=== PATIENT | female | born 1980 ===

== ENCOUNTER 2020-06-04 19:18 | Emergency (ER) | payer SELFPAY ==
[~2020-06-04] VITALS: Ht 165.1 cm; Wt 136.4 kg
[~2020-06-04 19:18] MED LIST: ALBUTEROL SULF8.5 GM INH; LEVAQUIN750 MG PO; PAXIL20 MG PO; TOPROL XL25 MG PO
[2020-06-04 19:35] VITALS: Ht 165.1 cm; Wt 136.4 kg
[2020-06-04 20:49] LABS: BILIRUBIN NEGATIVE (NEGATIVE); KETONE NEGATIVE (NEGATIVE); NITRITE NEGATIVE (NEGATIVE); UROBILINOGEN NORMAL mg/dL (< 2)
[2020-06-04 20:50] LABS: BACTERIA MANY HPF (NONE SEEN)
[2020-06-04 20:56] LABS: HCG URINE NEGATIVE (NEGATIVE)
[2020-06-04 21:57] LABS: CALC OSMOLALITY 272 mosm/kg (275-300); CALCIUM 9.1 mg/dL (8.5-10.1); CHLORIDE - SERUM 103 mmol/L (98-107); CREATININE - SERUM 0.8 mg/dL (0.6-1.3); GLUCOSE 97 mg/dL (74-106); POTASSIUM - SERUM 3.6 mmol/L (3.5-5.1); SODIUM 137 mmol/L (136-145); UREA NITROGEN 10 mg/dL (7-18); eGFR NON AFRICAN AMERICAN 85 mL/min (90-120)
[2020-06-04 22:00] LABS: BASOPHILS 0.3 % (0-2); EOSINOPHILS 4.6 % (0-7); HEMOGLOBIN 11.7 g/dL (12-16); IMMATURE GRANULOCYTES 0.4 % (0-5); LYMPHOCYTES 17.3 % (15-50); MCH 26.7 pg (26.0-34.0); MCHC 33.4 g/dL (31.0-37.0); MCV 79.9 fL (80.0-100.0); MEAN PLATELET VOLUME 9.6 fL (7.4-10.4); MONOCYTES 4.2 % (2-11); NEUTROPHILS 73.2 % (40-80); PLATELET COUNT 300 10x3/uL (130-400); RBC 4.38 10x6/uL (4.00-5.40); RDW 14.4 % (11.5-14.5); WBC 12.6 10x3/uL (4.8-10.8)
[2020-06-04 22:08] LABS: ALBUMIN 3.3 g/dL (3.4-5.0); ALKALINE PHOSPHATASE 66 U/L (30-120); ALT (SGPT) 35 U/L (10-68); BILIRUBIN - TOTAL 0.21 mg/dL (0.2-1.3); C-REACTIVE PROTEIN 0.9 mg/dL (0.0-0.9); LIPASE 206 U/L (73-393); PROTEIN - SERUM 7.3 g/dL (6.4-8.2)
[2020-06-04 22:14] LABS: TROPONIN-I < 0.017 ng/mL (0.000-0.060)
[2020-06-04] MEDS ORDERED: ZOFRAN ODT4 MG/UDTAB PO (23:49)
[2020-06-04] MEDS ORDERED: FLAGYL500 MG PO (23:50)
[2020-06-05 00:06] VITALS: BP 151/92
== END 2020-06-05 00:01 | disposition home or self-care (01) ==
LOC: D.ER 19:18
PROVIDERS: Family Medicine
DX: R11.2 Nausea with vomiting, unspecified (principal); N76.0 Acute vaginitis; I10 Essential (primary) hypertension; J45.909 Unspecified asthma, uncomplicated